=== PATIENT | female | born 1990 | race Caucasian/White ===

== ENCOUNTER 2022-03-20 10:16 | Emergency (ER) | payer OTHER, SELFPAY ==
--- NOTE | ~2022-03-20 | XR_ITS ---
EXAMINATION: XR ankle RT min 3V INDICATION: Right ankle pain TECHNIQUE: Four views of the right ankle are obtained. COMPARISON: None available FINDINGS: No fracture, dislocation, or subluxation. The bones, soft tissues, and joint spaces are nor mal. IMPRESSION: 1. No acute osseous abnormality. Reviewed, dictated and finalized at location F. [employer] MANAGER
[2022-03-20 10:26] VITALS: BP 127/81; PULSE 80; RESP 16; TEMP 37.6; O2SAT 100
--- NOTE | 2022-03-20 10:28 | ED.LOWEXIN ---
HPI - Extremity Injury (Lower) General Chief Complaint: Extremity Injury, Lower Stated Complaint: INJURED R ANKLE Time Seen by Provider: 03/20/22 10:20 Source: patient, family and RN notes reviewed History of Present Illness HPI Narrative: Patient is a 31-year-old female who presents to Urgent Care with her spouse with complaints of right ankle pain and swelling. Patient states she was trying to eat some crackers as the top cabinet and jumped up, coming down on her right ankle and rolling her foot. Patient states that pain is exacerbated with flexion and weight-bearing. Patient states she has elevated, use ice and took ibuprofen for pain. No other acute complaints. No acute distress noted. Patient aware of the plan of care. Some parts of this dictation were generated by voice recognition software and may contain typographical and/or grammatical inaccuracies. Related Data Home Medications Medication Instructions Recorded Confirmed folic acid 1 mg tablet 1 mg PO DAILY 03/20/22 03/20/22 levetiracetam 500 mg tablet 500 mg PO BID 03/20/22 03/20/22 norgestimate 0.25 mg-ethinyl 1 tablet PO DAILY 03/20/22 03/20/22 estradiol 35 mcg tablet (Estarylla) sertraline 50 mg tablet 50 mg PO DAILY 03/20/22 03/20/22 Allergies Allergy/AdvReac Type Severity Reaction Status Date / Time azithromycin AdvReac Unknown Other Verified 03/20/22 10:40 Review of Systems Review of Systems: CONSTITUTIONAL: Denies fever, chills, or sweats. EYES: Denies visual changes, redness, or discharge. ENT: Denies rhinorrhea, congestion, sore throat, or otalgia. CARDIOVASCULAR: Denies chest pain, palpitations, or edema. RESPIRATORY: Denies cough or dyspnea. GASTROINTESTINAL: Denies abdominal pain, nausea, vomiting, or diarrhea. GENITOURINARY: Denies dysuria or hematuria. SKIN: Denies rash or itching. MUSCULOSKELETAL: Reports right ankle pain and swelling NEUROLOGIC: Denies headache, numbness, or weakness. All other systems reviewed are negative, except as documented in HPI. PMFSH Comments At the time of my signature, I reviewed and agree with the nursing past medical, surgical, social, and family history. There is no relevant family history pertinent to the patient complaint. Exam Narrative: GENERAL: This is a well-nourished, well-developed patient, in no apparent distress. HEAD: normocephalic, atraumatic. EYES: PERRL. Sclera clear/white. Vision is grossly intact. EARS: External ears normal NOSE: External nose normal with no obvious nasal discharge, nares without redness, no rhinorrhea. THROAT: Mucous membranes moist NECK: Neck supple SKIN: warm, intact with no suspicious lesions or rash, good texture and turgor. NEURO: awake, alert, and oriented to person, place and time. There were no obvious focal neurologic abnormalities. EXTREMITIES: 3 cm area of ecchymosis noted to the talus region the right lower extremity with mild pain on palpation. Positive strong right pedal pulse with capillary refill less than 2 seconds. Mild lateral left malleolus edema with exacerbated pain on ambulation and flexion Course Course Level of Care: Express Care Visit Vital Signs Vital signs: Vital Signs Temperature 99.6 F 03/20/22 10:26 Pulse Rate 80 03/20/22 10:26 Respiratory Rate 16 03/20/22 10:26 Blood Pressure 127/81 03/20/22 10:26 Pulse Oximetry 100 03/20/22 10:26 Temperature 99.6 F 03/20/22 10:26 Pulse Rate 80 03/20/22 10:26 Respiratory Rate 16 03/20/22 10:26 Blood Pressure 127/81 03/20/22 10:26 Pulse Oximetry 100 03/20/22 10:26 Reviewed MDM - Extremity Injury (Lower) MDM Narrative Medical decision making narrative: Unable to review x-ray results with the patient. She is aware that our x-ray system is down and we are unable to view the imaging. Therefore patient agrees to be discharged from the facility and we will call her by the end of closing with x-ray results. In the meantime advised patient to try to limit shay
== END 2022-03-20 11:03 | disposition home or self-care (01) ==
PROVIDERS: Emergency Provider Nurse Practitioner Family; PCP Physician Assistant
DX: S93.401A Sprain of unspecified ligament of right ankle, initial encounter (principal); S96.911A Strain of unspecified muscle and tendon at ankle and foot level, right foot, initial encounter; X50.9XXA Other and unspecified overexertion or strenuous movements or postures, initial encounter; G40.909 Epilepsy, unspecified, not intractable, without status epilepticus
CPT/HCPCS: 73610; 99203; G0463

== ENCOUNTER 2024-04-29 08:43 | Emergency (ER) | payer OTHER, SELFPAY ==
[2024-04-29 08:55] VITALS: BP 102/83; PULSE 88; RESP 16; TEMP 36.8; O2SAT 100
--- NOTE | 2024-04-29 09:16 | ED_ITS ---
HPI - URI/Sore Throat General Chief Complaint: Upper Respiratory Infection Stated Complaint: SORE THROAT Time Seen by Provider: 04/29/24 09:16 Source: patient, RN notes reviewed and old records reviewed Mode of arrival: ambulatory Limitations: no limitations History of Present Illness HPI Narrative: 33 year old female who presents to [facility] care with complaints of sore throat, dull headache,and some shoulder aches that began yesterday. Patient reports that she is concerned that she has strep, daughter was just diagnosed with strep throat yesterday. Patient has had past tonsillectomy. She reports no fevers, has not taken any OTC medication for her symptoms MD elicited complaint: sore throat Pertinent past history: other (tonsillectomy) Onset (ago): day(s) (day 2 of symptoms) Consistency: constant Pain scale (0-10): 4 Able to tolerate fluids by mouth: Yes Treatments prior to arrival: none Related Data Home Medications ?Medication ?Instructions ?Recorded ?Confirmed ?Last Taken ?Type folic acid 1 mg tablet 1 mg PO DAILY 03/20/22 04/29/24 Unknown History levetiracetam 500 mg tablet 500 mg PO BID 03/20/22 04/29/24 Unknown History Allergies Allergy/AdvReac Type Severity Reaction Status Date / Time azithromycin AdvReac Unknown Other Verified 04/29/24 08:52 Review of Systems Review of Systems: CONSTITUTIONAL: Denies malaise, chills, sweats, or fever. EYES: Denies visual changes, redness, or discharge. ENT: Reports no rhinorrhea, congestion, sinus pain,no otalgia and positive for sore throat. CARDIOVASCULAR: Denies chest pain, palpitations, or edema. RESPIRATORY: Reports no cough.? Denies dyspnea. GASTROINTESTINAL: Denies abdominal pain, nausea, vomiting, diarrhea SKIN: Denies rash or itching. MUSCULOSKELETAL: Denies myalgia. NEUROLOGIC: Reports dull headache. All systems reviewed & are unremarkable except as noted in HPI and below [facility] Past Medical History Medical History (Updated 04/30/24 @ 00:02 by Talha Pérez) Seizure disorder Surgical History Surgical History (Updated 04/29/24 @ 09:24 by Hawa Bliss NP) History of tonsillectomy Social History Social History (Updated 04/29/24 @ 09:25 by Hawa Bliss NP) Smoking status: Never smoker Alcohol intake: current Alcohol use details: social rare Substance use type: does not use Living arrangements: with family Gender identity (if verbalized by the patient): Female Comments At time of signature, agree with nursing past medical, surgical, social and family history. There is no relevant family history pertinent to the presenting complaint Exam Narrative: GENERAL: Well-appearing, well-nourished, and in no acute distress. HEAD: Normocephalic EYES: PERRLA, conjunctivae clear ENT: Nares clear, turbinates edematous and erythematous, no discharge. Mucous membranes moist. TM pearly allred with dull light reflex bilaterally; no tragal tenderness. Oropharynx erythematous without lesions. Tonsils not present and throat without exudate, no drooling, no hoarseness, no trismus, uvula midline, painful swallowing noted with redness of throat. NECK: Supple. No lymphadenopathy CHEST: Clear to auscultation, breath sounds equal. No wheezing, rhonchi, rales, or stridor. No respiratory distress, speaks in full sentences.SAO2 100% on room air HEART: Regular rate and rhythm. No murmur heard. SKIN: Warm, dry, no rash. NEURO: Alert and oriented x3. PSYCH: Normal mood and affect Course Course Emergency Course: Patient is aware of diagnosis, understands and agrees to treatment plan.? Anticipatory guidance given.? Patient agrees to follow-up as directed and is aware of reasons to seek care at the emergency department. Portions of this record may have been created with voice recognition software Level of Care: Express Care Visit Vital Signs Vital signs: Vital Signs Temperature 36.8 C 04/29/24 08:55 Pulse Rate 88 04/29/24 08:55 Respiratory Rate 16 04/29/24 08:55 Blood Pressure 102/83 04/29/24 08:55 Pulse Oximetry 100 04/29/24 08:55 Temperature 36.8 C 04/29/24 08:55 Pulse Rate 88 04/29/24 08:55 Respiratory Rate 16 04/29/24 08:55 Blood Pressure 102/83 04/29/24 08:55 Pulse Oximetry 100 04/29/24 08:55 Reviewed MDM - URI/Sore Throat MDM Narrative Medical decision making narrative: Differential diagnosis considered: Wong virus, strep pharyngitis, allergic rhinitis, upper respiratory tract infection, sinusitis, rhinosinusitis, nasopharyngitis. viral pharyngitis, otitis media, otitis externa, pneumonia, bronchitis, viral cough syndrome, viral syndrome, and influenza.? Exam findings show no acute concerns or changes; patient is non-toxic appearing and is in no distress.? Patient is appropriate for outpatient treatment and follow-up. Differential Diagnosis Differential diagnosis: Likely upper respiratory infection, viral infection, pharyngitis and other (strep pharyngitis) Medical Records Attestation: I reviewed the patient's medical records. Lab Data Attestation: I reviewed the patient's lab results. Lab results narrative: strep screen positive Labs: Lab Results 04/29/24 Range/Units 09:37 POC Grp A Strep Screen Positive (Negative) Critical Care Time Critical Care Time Critical Care Time: No Discharge Plan Discharge Clinical Impression: Acute streptococcal pharyngitis Patient Disposition: Home, Self-Care Condition: Stable Instructions: Antibiotic Form, Strep Throat (ED) Additional Instructions: You tested positive for Group A strep . Take the entire course of antibiotics. Throw away your current toothbrush and begin using a new toothbrush in 48 hours in order to prevent re-infection. Sanitize all reusable water bottles . Do not share items with others. Salt water gargles may alleviate some of the throat discomfort. You can take Tylenol or ibuprofen per the package instructions for pain/fever. If your symptoms persist, change or worsen significantly before you can contact your personal physician then please, without delay, go to the emergency department for further evaluation. Follow-up with PCP in 7-10 days or sooner if needed Patient Language: Thai Prescriptions: New amoxicillin 500 mg capsule 500 mg PO Q8H Qty: 30 0RF Rx Instructions: take all of prescription No Action levetiracetam 500 mg tablet 500 mg PO BID folic acid 1 mg tablet 1 mg PO DAILY Follow-up/Referrals: Caden,DOMINIC Churchill [Primary Care Provider] - Time of Disposition: 09:28 Quality Juliette Coma Scale Eyes: Open Verbal: Oriented and Alert Motor: Follows Commands Juliette Coma Total Score: 15
[2024-04-29 09:40] LABS: EDSTREPNEGPOS1 Positive (Negative)
== END 2024-04-29 09:34 | disposition home or self-care (01) ==
PROVIDERS: Emergency Provider Registered Nurse; PCP Physician Assistant
DX: J02.0 Streptococcal pharyngitis (principal); G40.909 Epilepsy, unspecified, not intractable, without status epilepticus
CPT/HCPCS: 87880; 99213; G0463